=== PATIENT | female | born 1975 | race Caucasian/White ===

== ENCOUNTER 2018-12-09 09:13 | Emergency (ER) | payer OTHER ==
[~2018-12-09] VITALS: Ht 165.1 cm; Wt 113.4 kg
[2018-12-09] MEDS ORDERED: IBUPROFEN 600600 M1 PO (09:27)
[2018-12-09] MEDS ORDERED: NEURONTIN 400M400 M2 (09:27)
[2018-12-09] MEDS ORDERED: NORCO 5-325 TA1 EAC1 PO (11:10)
[2018-12-09] MEDS ORDERED: NAPROSYN500 MG PO (11:10)
[2018-12-09 11:33] VITALS: BP 128/68
== END 2018-12-09 11:34 | disposition home or self-care (01) ==
LOC: M.ERS 09:13
DX: S40.011A Contusion of right shoulder, initial encounter (principal); S20.221A Contusion of right back wall of thorax, initial encounter; S30.0XXA Contusion of lower back and pelvis, initial encounter; S00.83XA Contusion of other part of head, initial encounter; W00.0XXA Fall on same level due to ice and snow, initial encounter; Y93.89 Activity, other specified; Y92.89 Other specified places as the place of occurrence of the external cause; Y99.8 Other external cause status